=== PATIENT | male | born 1950 | race Caucasian/White ===

== ENCOUNTER 2017-01-25 08:57 | Emergency (ER) | payer MEDICARE, OTHER ==
--- NOTE | 2017-01-25 10:30 | ER Document Report ---
HPI - HPI Pain Level: 4 Notes: Patient is a 66-year-old male with a history of GERD and no other significant medical history who presents to the ED complaining of right toe pain and left rib pain status post fall last evening. Patient states that he went out to let the dog out and fell down 8 stairs of his speech has. Patient states that he did bump his head and has a bruise on his forehead, but denies any loss of consciousness, nausea/vomiting. Patient states that when he does take a deep breath he feels the pain on the left side. Patient states that he believes he ripped off the nail of his great toe. Patient states that he is still ambulating without any difficulties. The pains do not radiate. He still eating and drinking without any difficulties. He has not noticed any blood in his urine. Denies any headache, fever,neck pain, changes in vision/speech/ mentation/hearing, URI, sore throat, chest pain (aside from ribs), palpitations , syncope, cough, shortness of breath, wheeze, dyspnea, abdominal pain, nausea/ vomiting/diarrhea, urinary retention, dysuria, hematuria, loss of control of bowel or bladder, numbness/tingling, saddle anesthesia, muscle paralysis/ weakness, or rash. - ROS Notes: REVIEW OF SYSTEMS: CONSTITUTIONAL : Denies fever, chills, or sweats. Denies recent illness. EENT: Denies eye, ear, throat, or mouth pain or symptoms. Denies nasal or sinus congestion or discharge. Denies throat, tongue, or mouth swelling or difficulty swallowing. CARDIOVASCULAR: Denies chest pain-see hpi. Denies palpitations or racing or irregular heart beat. Denies ankle edema. RESPIRATORY: Denies cough, cold, or chest congestion. Denies shortness of breath, difficulty breathing, or wheezing. GASTROINTESTINAL: Denies abdominal pain or distention. Denies nausea, vomiting , or diarrhea. Denies blood in vomitus, stools, or per rectum. Denies black, tarry stools. Denies constipation. GENITOURINARY: Denies difficulty urinating, painful urination, burning, frequency, blood in urine, or discharge. MUSCULOSKELETAL: see hpi SKIN: see hpi NEUROLOGICAL: Denies confusion or altered mental status. Denies passing out or loss of consciousness. Denies dizziness or lightheadedness. Denies headache. Denies weakness or paralysis or loss of use of either side. Denies problems with gait or speech. Denies sensory loss, numbness, or tingling. Denies seizures. PSYCHIATRIC: Denies anxiety or stress. Denies depression, suicidal ideation, or homicidal ideation. ALL OTHER SYSTEMS REVIEWED AND NEGATIVE. Dictation was performed using [employer] voice recognition software - [employer] Skin Color: Normal Past Medical History - General Information source: Patient - Social History Smoking Status: Never Smoker Chew tobacco use (# tins/day): No Frequency of alcohol use: None Drug Abuse: None Family History: None Patient has suicidal ideation: No Patient has homicidal ideation: No Renal/ Medical History: Denies: Hx Peritoneal Dialysis GI Medical History: Reports: Hx Gastroesophageal Reflux Disease Surgical Hx: Negative Vertical Provider Document - CONSTITUTIONAL Agree With Documented VS: Yes Notes: PHYSICAL EXAMINATION: GENERAL: Well-appearing, well-nourished and in no acute distress. A&Ox4. Pt ambulatory in the room HEAD: Atraumatic, normocephalic. Non-tender. No cedillo sign. Michele small area of ecchymosis w. minimal swelling to the rt forehead. EYES: Pupils equal round and reactive to light, extraocular movements intact, sclera anicteric, conjunctiva are normal. No raccoon eyes/entrapment ENT: EAC clear b/l. TM's intact b/l without erythema, fluid, or perforation. Nares patent and without discharge. oropharynx clear without exudates. No tonsilar hypertrophy or erythema. Moist mucous membranes. No sinus tenderness. No hemotympanum/CSF discharge. NECK: Normal range of motion, supple without lymphadenopathy. No rigidity. No midline tenderness. Spurling negative. NEXUS negative. Chest: No flail chest. equal rise/fall. No ecchymosis, abrasion, laceration, or deformity noted. + tenderness to the left lateral ribs approx #7-10. LUNGS: Breath sounds clear to auscultation bilaterally and equal. No wheezes rales or rhonchi. HEART: Regular rate and rhythm without murmurs, rubs, gallops. ABDOMEN: Soft, nontender, nondistended abdomen. No guarding, no rebound. No masses appreciated. Normal bowel sounds present. No CVA tenderness bilaterally. Small abrasion to the supraumbilical abd. Musculoskeletal: Ext b/l: FROM to passive/active. Strength 5+/5. No deficits noted. Rt foot/toes: + nail avulsion to the 1st digit. + ecchymosis/mild swelling and mild tenderness to the 1st-2nd digits. No malleolar tenderness or foot tenderness otherwise. Back: FROM to passive/active. Strength 5+/5. No vertebral point tenderness, stepoffs, or deformities. No other bony tenderness or ecchymosis. SLR negative b/l. Extremities: No cyanosis, clubbing, or edema b/l. Peripheral pulses 2+. Capillary refill less than 2 seconds. NEUROLOGICAL: MMSE intact. NIH 0. Cranial nerves grossly intact. Normal speech, normal gait. Normal sensory, motor exams. Reflexes 2+ b/l. SARA's negative. Pronator drift negative. Heel/rehman, finger/nose wnl. PSYCH: Normal mood, normal affect. SKIN: see MSK exam/abd exam. Warm, Dry, normal turgor, no rashes or lesions noted. - INFECTION CONTROL TRAVEL OUTSIDE OF THE [place] IN LAST 30 DAYS: No - RESPIRATORY O2 Sat by Pulse Oximetry: 98 Course - Re-evaluation Re-evalutation: 01/25/17 12:[address] Mckenna who is in agreement with discharge/plan: Patient is an afebrile, well-hydrated, 66-year-old male who presents the ED with a right foot first digit nail avulsion, second digit fracture with minimal displacement 2 places, rib contusion status post fall. See XR results. Vitals are stable. PE otherwise unremarkable for any focal neurological deficits. The abdominal exam did not elicit any tenderness, ecchymosis, or deformity. Low suspicion/risk for any sepsis, septic joint, tenosynovitis, severely displaced fractures, organ laceration in the abdomen, pneumothorax, hemothorax, ACS, PE, dissection, mediastinitis, meningitis, intracranial hemorrhage, ischemic stroke. Patient is aware that his condition can change from initial presentation and that he needs to monitor symptoms closely for any acute changes. I will send him home with a prescription for naproxen, pt declined any stronger pain medication. A wound dressing was placed to the foot & wound instructions reviewed. Patient is aware that his nail may or may not grow back. A postop shoe was placed and crutches were given. Recheck with your PCM in 2-3 days. Schedule an appointment with orthopedics next week. Return to the ED with any worsening/concerning symptoms otherwise as reviewed in discharge. Patient is in agreement. - Vital Signs Vital signs: Temp Pulse Resp BP Pulse Ox 98.6 F 87 20 155/97 H 98 01/25/17 09:01 01/25/17 09:01 01/25/17 09:01 01/25/17 09:01 01/25/17 09:01 Discharge - Discharge Clinical Impression: Fall (on) (from) other stairs and steps, initial encounter Toe fracture, right Qualifiers: Encounter type: initial encounter Toe: unspecified toe Fracture type: closed Fracture alignment: displaced Qualified Code(s): S92.911A - Unspecified fracture of right toe(s), initial encounter for closed fracture Rib contusion Qualifiers: Encounter type: initial encounter Laterality: left Qualified Code(s): S20.212A - Contusion of left front wall of thorax, initial encounter Nail avulsion of toe Qualifiers: Encounter type: initial encounter Qualified Code(s): S91.209A - Unspecified open wound of unspecified toe(s) with damage to nail, initial encounter Condition: Stable Disposition: HOME, SELF-CARE Instructions: Rib Contusion ([facility]), Fractured Toe ([facility]), Head Injury Precautions ([facility]), Follow-Up Care ([facility]), Ice & Elevation ([facility]), Bactroban Ointment ([facility]), Use of Crutches ([facility]) Additional Instructions: Rest, Ice, Compression, Elevation Use crutches/post-op shoe as directed Tylenol/ibuprofen as needed Wound dressing as reviewed Light stretches daily Strength exercises as able Moist heat and massage may help F/u with your PCP in 2-3 days for a recheck Call Orthopedics to schedule a f/u for further evaluation/treatment* Return to the ED with any worsening symptoms and/or development of fever, headache, changes in mentation/vision/speech/behavior/balance, chest pain, palpitations, syncope, shortness of breath, trouble breathing, abdominal pain, n /v/d, blood in stool/urine, loss of control of bowel/bladder, urinary retention , muscle weakness/paralysis, saddle anesthesia, numbness/tingling, or other worsening symptoms that are concerning to you. Prescriptions: Naproxen 500 mg PO BID PRN #30 tablet PRN Reason: Forms: Elevated Blood Pressure Referrals: [facility] [Provider Group] - Follow up in 3-5 days
--- NOTE | 2017-01-25 11:24 | RADIOLOGY REPORT (SQ) ---
EXAM DESCRIPTION: RIBS LEFT W/PA CHEST COMPLETED DATE/TIME: 01/25/2017 11:11 am REASON FOR STUDY: fall, left rib pain COMPARISON: None. TECHNIQUE: Frontal view of the chest and additional views of the left ribs acquired. NUMBER OF VIEWS: Three view. LIMITATIONS: None. FINDINGS: FRONTAL CXR: No pneumothorax. No pleural effusion. No atelectasis or infiltrates. RIBS: No displaced rib fractures. No lytic or blastic bony lesions. OTHER: No other significant finding. IMPRESSION: NO PNEUMOTHORAX. NO DISPLACED RIB FRACTURES. COMMENT: SITE OF TRAUMA/COMPLAINT MARKED/STAMP COMPLETED: YES. TECHNICAL DOCUMENTATION: JOB ID: [id number] [employer]- All Rights Reserved
--- NOTE | 2017-01-25 11:24 | RADIOLOGY REPORT (SQ) ---
EXAM DESCRIPTION: TOE RIGHT COMPLETED DATE/TIME: 01/25/2017 11:11 am REASON FOR STUDY: rt 1-3rd toe pain s/p injury w. nail avulsion @1st COMPARISON: None. NUMBER OF VIEWS: Three views. TECHNIQUE: AP, lateral, and oblique images acquired of the right toes. LIMITATIONS: None. FINDINGS: MINERALIZATION: Normal. BONES: Minimally displaced oblique fracture of the proximal phalanx of the 2nd toe. Displaced fractu re at the base of the middle phalanx of the 2nd toe. JOINTS: No effusions. SOFT TISSUES: No soft tissue swelling. No foreign body. OTHER: No other significant finding. IMPRESSION: FRACTURES OF THE PROXIMAL AND MIDDLE PHALANX OF 2ND TOE. COMMENT: SITE OF TRAUMA/COMPLAINT MARKED/STAMP COMPLETED: YES. TECHNICAL DOCUMENTATION: JOB ID: [id number] [employer]- All Rights Reserved
[2017-01-25 12:44] VITALS: BP 144/89
== END 2017-01-25 13:03 | disposition home or self-care (01) ==
LOC: ER 08:57
DX: S92.911A Unspecified fracture of right toe(s), initial encounter for closed fracture (principal); S20.212A Contusion of left front wall of thorax, initial encounter; S91.209A Unspecified open wound of unspecified toe(s) with damage to nail, initial encounter; W10.9XXA Fall (on) (from) unspecified stairs and steps, initial encounter; Y92.009 Unspecified place in unspecified non-institutional (private) residence as the place of occurrence of the external cause; K21.9 Gastro-esophageal reflux disease without esophagitis
CPT/HCPCS: 99283